=== PATIENT | male | born 1950 | race Caucasian/White ===

== ENCOUNTER → 2017-04-20 | Day surgery (SDC) | payer MEDICARE ==
[~2017-04-20] VITALS: Ht 175.3 cm; Wt 79.0 kg
[2017-04-20] VITALS (9 sets, daily range): BP systolic 96–152; BP diastolic 54–93; PULSE 68–80; RESP 11–18; O2SAT 94–98
[~2017-04-20] MED LIST: ASPI-973 PO; CHOL100045 PO; CeFAZolin Inj 2 GM in IV Premix 1 EACH IV ONE; Dexamethasone 4 mg/mL Inj IVPUSH PRN; Dexamethasone 4 mg/mL Inj ONE; EPHEDrine Sulfate 50 mg/mL Inj IVPUSH PRN; HYDROcodone-APAP 5-325 mg Tablet PO PRN; HYDROmorphone 1 mg/mL Inj IVPUSH PRN; Ketamine 10 mg/mL 20 mL Inj ONE; LISI1TAB7 PO; Lactated Ringer's 1,000 ML IV ONE; Lactated Ringer's 1,000 ML IV SCH; Lactated Ringer's 500 ML IV PRN; MULT1CAP33 PO; MetoCLOpramide 5 mg/mL 2 mL Inj IVPUSH PRN; Ondansetron 2 mg/mL 2 mL Inj IVPUSH PRN; Ondansetron 2 mg/mL 2 mL Inj ONE; Phenylephrine 10,000 mCg/mL Inj IVPUSH PRN; Propofol 10,000 mCg/mL 20 mL Inj ONE; SIMV20TA4 PO; fentaNYL-PF 50 mCg/mL 2 mL Inj IVPUSH PRN
--- NOTE | 2017-04-20 08:08 | PCM.HPANE ---
Patient Data Surgeon Admitting Provider: Attending Provider:Lynette Fletcher MD Primary Care Physician:Villa Johnson MD Other Provider:[place] Anesthesia Reason for Visit Bladder Cancer Ht/WT & BMI Height (Feet): 5 Height (Inches): 9 Weight (Kilograms): 77. Body Mass Index 25.00 Allergies Coded Allergies: No Known Allergies (Verified , 04/19/17) Past Anesthesia History Anesthesia History: Denies:: Abnormal Airway, Anesthesia Reactions, Difficult Intubation, Fam Anesthesia Reaction, Fam Malignant Hypertherm, Malignant Hyperthermia Diabetes History Hx Diabetes?: No MRSA MRSA: No Medications Blood Thinner: Aspirin Last Dose Blood Thinner: Apr 18, 2017 Hypertension Medication: Yes (HCTZ/Lisinopril) Home Meds Incl Beta Noah: No Reported Medications Simvastatin 20 Mg [id number] Mg PO HS Ref 0 04/19/17 Cholecalciferol (Vitamin D3) (Vitamin D)1,000 Unit Capsule1,000 Unit PO DAILY # 1 BOTTLE Ref 0 04/19/17 Multivitamin (Multivitamins)1 Each Capsule1 Each PO DAILY 04/19/17 Lisinopril / HCTZ 10-12.5 mg 1 Each Tablet1 Each PO DAILY Ref 0 04/19/17 Aspirin 81 Mg [id number] Mg PO DAILY Ref 0 04/19/17 Discontinued Reported Medications Cholecalciferol (Vitamin D3) (Vitamin D)1,000 Unit Capsule2,000 Unit PO DAILY # 1 BOTTLE Ref 0 03/15/16 Multivitamin (Once Daily)1 Each Tablet1 Each PO DAILY 03/15/16 Lisinopril / HCTZ 10-12.5 mg 1 Each Tablet1 Each PO DAILY Ref 0 03/11/16 Aspirin 81 Mg [id number] Mg PO DAILY Ref 0 03/11/16 History History of ENT Problems?: No HEENT History: Denies:: Abnormal Airway Difficult Intubation Dysphagia Hearing Problem Sinus Problem TMJ Denture Type: Full- Upper Teeth Condition: Within Normal Limits Hx of Heart Problems?: Yes Cardiovascular History: Positive for:: Hypertension (HYPERLIPIDEMIA) Denies:: AICD Abdominal Aortic Aneurism Atrial Fibrillation Cardiac Surgery Chest Pain Congestive Heart Failure Coronary Artery Disease Edema Heart Murmur Irregular Heartbeat Pacemaker Peripheral Vascular Rheumatic Fever Thrombophlebitis Valvular Heart Disease Hx of Respiratory Problem?: No Respiratory History: Denies:: Pneumonia Tuberculosis Use of C-PAP Machine Hx Neurologic Problems?: No Neurological History: Denies:: Alzheimer's Disease CVA Dementia Dizziness Headaches Parkinson's Disease Seizures TIA Hx of GI Problems?: Yes Hx of Problems?: Yes Genitourinary History: Denies:: Kidney Stones HX of Peritoneal Dialysis: No Male Hx: Denies:: Prostate Problems Scrotal Mass Testicular Surgery Skin History: Positive for:: History Skin Disorders? (S/P EXC BX SCALP) Denies:: Pressure Ulcers Hx Musculoskeletal Problems?: Yes Musculoskeletal History: Denies:: Back Injury (C/OF BACK PAIN) Degenerative Joint Joint Replacement Musculoskeletal Trauma Osteoarthritis Rheumatoid Arthritis Hx of Psycho/Social Problems?: No Psycho Social History: Denies:: Anxiety Hx Depression Hx Surgeries?: Yes (TRANSANAL EXC RECTAL CA,EXC BX SCALP LESION) Hx Any Other Health Problems?: Yes Other History: Positive for:: Cancer (??SCALP LESION, RECTAL CA,??BLADDER TUMOR) Denies:: Endocrine Disease Hospitalization Thyroid Disease History Blood Transfusions: Positive for:: Accept Blood Products? Denies:: Blood Transfusions Hx Diabetes: No Hx Alcohol Use: Yes (RARELY)Hx Substance Use: No Smoking Status: Current Every Day Smoker Have You Smoked inLast 12 mo: YesApprox How Many Cigarettes/day: 10 Stop/Bang Treated for Sleep Apnea?: No Do You Have a CPAP Machine?: No S-Snoring: Do You Snore Loudly: No T-Tired: feel tired, fatigued: No O-Obsered: Observed not breath: No P-Blood Pressure: treated: Yes B- Body Mass Index > 35 kg/m2: No A- Age over 50: Yes N- Neck Large Circumference: No G- Gender Male: Yes ZACHARIAH Total Score: 3 ZACHARIAH Risk Assessment: High Risk, =/>3 Yes ZACHARIAH Category 4 OutPt Procedure: Yes Risk Assessment Category Category 1A: Patient has history of documented sleep apnea, and HAS NOT received any narcotic, sedative or anesthesia administration during this stay. Category 1B: Patient has history of documented sleep apnea, and HAS received any narcotic , sedative or anesthesia administration during this stay Category 2: Patient has SUSPECTED Obstructive Sleep Apnea, and HAS received any narcotic , sedative or anesthesia administration during this stay. Category 3: Patient has SUSPECTED Obstructive Sleep Apnea and HAS NOT received narcotic, sedative or anesthesia administration during this stay. Category 4: Outpatient in Procedural Areas with known sleep apnea or who screen positive for High Risk via the STOP/BANG questionnaire. Exam Exam General Appearance: Alert, Oriented X3, Cooperative, No Acute Distress HEENT/AIRWAY: MP 2 Lungs: Clear to Auscultation, Normal Air Movement Heart: Exam Unremarkable, Regular Rate/Rhythm, No Murmurs/Rubs/Gallops Plan Impression Patient chart reviewed, patient interviewed and anesthestic plan with risks, benefits, and alternatives discussed, and informed consent obtained. ASA Physical Status: ASA2 Mod Systemic Disease Anesthetic Plan: GA Bene/Risks/Altern/Consents: Yes HP Complete Prior to Induction: Yes Gaurav Kauffman MD Apr 20, 2017 08:08
--- NOTE | 2017-04-20 11:25 | OP ---
[address] [address] OPERATIVE REPORT PATIENT: YENIFER PAZ : 1950 MR#: [id number] ADMIT: 04/20/2017 JOB ID: [id number] DATE OF SURGERY: 04/20/2017 PREOPERATIVE DIAGNOSIS(ES): History of bladder cancer. POSTOPERATIVE DIAGNOSIS(ES): History of bladder cancer. PROCEDURE PERFORMED: 1. Cystoscopy. 2. Bladder biopsy. SURGEON: Lynette Fletcher MD. TEXTILE ENGRAVER: None. FINDINGS: 1. Old transurethral section of bladder tumor sites. 2. Very small, low-lying papillary versus edematous lesion medial to the previous resection site at the right posterior bladder base. ANESTHESIA: General. ESTIMATED BLOOD LOSS: Less than 1 mL. DRAINS: None. SPECIMENS: Bladder lesion. COMPLICATIONS: None. CONDITION: Stable. INDICATION FOR PROCEDURE: The patient is a 66-year-old gentleman with a history of high-grade bladder cancer. He was found to have a possible bladder lesion on cystoscopy. He now presents for the aforementioned procedure. DESCRIPTION OF THE PROCEDURE: After informed consent was obtained, the patient was taken to the operating room. A time-out was performed identifying correct patient, surgical site and procedure. General anesthesia was smoothly induced. He was given intravenous antibiotics just prior to start of procedure. He was placed in the lithotomy position and all pressure points were identified and appropriately padded. His genitals were then prepped and draped in usual sterile fashion. A 26-Kazakh resectoscope was applied to the patient's urethra and advanced into the bladder. The bladder was drained. The bladder was systematically inspected with both 30 and 70-degree lenses. A flexible cystoscope was also used to inspect the bladder quite thoroughly. The findings were aforementioned. Cold cup biopsy forceps were used to biopsy his old resection site, as well as the lesion adjacent to it. These were sent off as permanent sections to Pathology. The resectoscope was then replaced and a 24-Kazakh loop was used to cauterize the bladder biopsy sites. The bladder was drained. There was excellent hemostasis. The patient appeared to tolerate the procedure well without apparent complications. He was reversed from general anesthesia and taken to PACU in good and stable condition. [facility]
--- NOTE | 2017-04-20 14:48 | PCM.ANEP1 ---
Post Anesthesia PACU Phase 1 Assessment Vital Signs Vital Signs Date Time Temp Pulse Resp B/P Pulse Ox O2 Delivery O2 Flow Rate FiO2 04/20/17 11:55 68 18 152/93 96 Room Air 04/20/17 11:19 36.6 76 16 120/80 95 Room Air 04/20/17 11:15 78 15 113/79 97 Room Air 04/20/17 11:10 36.8 76 15 127/78 98 Nasal Cannula 2 04/20/17 11:05 77 11 112/77 98 Nasal Cannula 2 04/20/17 11:00 78 13 116/74 98 Nasal Cannula 2 04/20/17 10:55 79 11 102/69 98 Nasal Cannula 2 04/20/17 10:50 37.1 80 11 96/54 94 Room Air 04/20/17 08:49 36.1 72 15 146/87 97 Room Air Anesthetic Administered: GA Level of Alertness: Awake, talking ROGERS's with Equal Strength: Yes Pain: No Nausea or Vomiting: No CV Function & Hydration Stable: Yes Airway Device: LMA Oxygen Delivery: Nasal Cannula Lungs: Clear to Auscultation, Normal Air Movement PACU Phase 2 Assessment Complications: No Follow up Care: No Patient Instructions Provided: N/A Gaurav Kauffman MD Apr 20, 2017 14:48
--- NOTE | 2017-04-22 13:34 | PATH ---
SURGICAL PATHOLOGY Attending Physician:Lynette Fletcher, CASE STATUS: Signed Out PATIENT NAME: YENIFER PAZ PID: [id number] : 1950 DATE COLLECTED:04/20/2017 21:08 SPECIMEN: Bladder, Biopsy CLINICAL HISTORY: BLADDER CANCER, EXCISION 1). BLADDER LESION FINAL DIAGNOSIS: 1.BLADDER LESION, BIOPSY: UROTHELIAL MUCOSA, NEGATIVE FOR NEOPLASM. ICD10 Z85.51 NOTE: Sections are of two fragments of urothelial mucosa. There are no papillary features identified. Additional step-sections are examined. As part of a routine corporate quality manager, Dr. Bullard has also reviewed this case and agrees with the above interpretation. GROSS DESCRIPTION: The specimen is received in one formalin filled container labeled with the patient's name, sublabeled "bladder" and consists of 2 extremely tiny portions of tissue which aggregate to less than 0.1 CM. The specimen is entirely submitted in one cassette. 04/20/2017DC MICRO DESCRIPTION: See diagnosis. ICD-9 CODES: CPT CODES: 1: 12057 Electronically Signed Out Chris Jung MD, Ph.D. [facility] Pathology [facility] [address], [place] [address] Technical component performed at [facility], [address] [place] [address] [address], [address]
== END | disposition home or self-care (01) ==
LOC: SAS 07:44
PROVIDERS: ATTEND Urology
DX: N32.9 Bladder disorder, unspecified (principal); I10 Essential (primary) hypertension; E78.5 Hyperlipidemia, unspecified; F17.210 Nicotine dependence, cigarettes, uncomplicated; Z79.82 Long term (current) use of aspirin; Z85.51 Personal history of malignant neoplasm of bladder
CPT/HCPCS: 52204; 88305; J0690; J1100; J2405; J2704; J7120